=== PATIENT | female | born 1975 | race Two or more races ===

== ENCOUNTER 2023-12-17 11:02 | Inpatient (IN) | payer OTHER ==
[~2023-12-17] VITALS: Ht 165.1 cm; Wt 76.7 kg
[~2023-12-17 11:02] MED LIST: CEFADROXIL500 MG PO; CODE1TAB37 PO; DOCUSATE SODIU100 MG PO; Mylicon 125MG PO
[2023-12-17] MEDS ORDERED: LOSARTAN POTASS50 MG PO (11:32)
[2023-12-17] MEDS ORDERED: URETRON D-S TAB1 TAB (11:33)
--- NOTE | 2023-12-17 11:33 | NUR ---
PTE REFIEE REFERIDO DEL DELGADO MILIAN PARA ADMINISTRACION DE ANTIBITICO POR INFECION SEBASTIÁN DE ORINA. SE LE DEV S/V Y SE UBICA EN PASILLO.
[2023-12-17] MEDS ORDERED: 0.9 % SODIUM CHLORIDE 1,000 ML IV SCH (12:00)
[2023-12-17] MEDS ORDERED: PIPERACILLIN/TAZOBACTAM SODIUM 3.375 GM VIAL IV ONE (12:00)
[2023-12-17 12:55] LABS: HEMATOCRIT 38.2 % (36.0-45.00); MEAN CELL VOLUME 90.4 fL (80.00-100.00); MEAN CORPUSCULAR HEMOGLOBIN 30.8 pg (27.00-32.0); MEAN CORPUSCULAR HGB CONC 34.1 g/dl (32.0-36.0); PLATELET COUNT 257 K/uL (150-450); RED BLOOD COUNT 4.22 M/uL (4.00-6.00); RED CELL DISTRIBUTION WIDTH 13.3 % (11.5-14.5)
--- NOTE | 2023-12-17 13:21 | NUR ---
PTE ALERTA Y ORIENTADA X3, RN PARRA EDUCA A PTE SOBRE [place] MEDICO, REFIERE ENTENDER. SE JING MUESTRAS DE LAB ABJO MEDIDAS ASEPTICAS, SE ADMINISTRAN MEDICAMENTOS RAUL ORDEN MEDICA Y SE NOTIFICA CT PENDIENTE
[2023-12-17 13:28] LABS: CREATININE SERUM 0.7 mg/dL (0.55-1.02); GFR 88.57; POTASSIUM 4.25 mEq/L (3.5-5.1)
[2023-12-17] MEDS ORDERED: RINGERS SOLUTION,LACTATED 1,000 ML IV SCH (15:30)
[2023-12-17 15:43] VITALS: BP 135/90
[2023-12-17 15:56] VITALS: BP 135/90; O2SAT 100
[2023-12-17 16:59] LABS: URINE APPEARANCE Clear; URINE BILIRRUBIN Negative (NEGATIVE); URINE BLOOD Negative; URINE COLOR Dark Yellow; URINE GLUCOSE Negative (NEGATIVE); URINE KETONE Negative (NEGATIVE); URINE LEUKOCYTE Trace; URINE NITRATE Positive; URINE PROTEIN Negative (NEGATIVE)
[2023-12-17 17:01] LABS: URINE BACTERIA 972.6 uL (0.0-1933); URINE EPITHELIAL CELLS 14.3 uL (0.0-38.8); URINE RBC 28.2 uL (0.0-20.8); URINE WBC 29.8 uL (0.0-23.2)
[2023-12-17 17:09] LABS: URINE CAST 0.15 uL (0.0-1.40)
[2023-12-17] MEDS ORDERED: MEROPENEM 500 MG in 0.9 % SODIUM CHLORIDE 50 ML IV SCH (18:00)
[2023-12-17] MEDS ORDERED: ACETAMINOPHEN 500 MG GEL..CAP PO PRN (20:45)
[2023-12-17] MEDS ORDERED: FAMOTIDINE/PF 20 MG/2 ML VIAL IV SCH (21:00)
[2023-12-18 01:52] VITALS: BP 115/71; O2SAT 97
[2023-12-18 06:09] LABS: HEMATOCRIT 37.5 % (36.0-45.00); HEMOGLOBIN 12.9 g/dL (12.0-15.00); MEAN CELL VOLUME 91.8 fL (80.00-100.00); MEAN CORPUSCULAR HEMOGLOBIN 31.5 pg (27.00-32.0); MEAN CORPUSCULAR HGB CONC 34.3 g/dl (32.0-36.0); PLATELET COUNT 239 K/uL (150-450); RED BLOOD COUNT 4.09 M/uL (4.00-6.00); RED CELL DISTRIBUTION WIDTH 13.3 % (11.5-14.5)
[2023-12-18 06:48] LABS: ALBUMIN 3.4 gm/dL (3.4-5.0); BILIRUBIN TOTAL 0.46 mg/dL (0.3-1.2); CALCIUM 8.6 mg/dL (8.5-10.1); CREATININE SERUM 0.54 mg/dL (0.55-1.02); GFR 119.5; GLOBULINA 3.3 G/DL (2.4-3.5); MAGNESIUM 2.1 mg/dL (1.8-2.4); PHOSPHOROUS 4.1 mg/dL (2.5-4.9); POTASSIUM 4.27 mEq/L (3.5-5.1); TOTAL PROTEIN 6.7 gm/dL (6.4-8.2)
[2023-12-18 08:50] VITALS: BP 119/76
[2023-12-18] MEDS ORDERED: ENOXAPARIN SODIUM 40 MG/0.4 ML SYRINGE SUBCUTANEO SCH (09:00)
[2023-12-18] MEDS ORDERED: LOSARTAN POTASSIUM 50 MG TABLET PO SCH (09:00)
[2023-12-18 16:24] VITALS: BP 145/94
[2023-12-19 01:43] VITALS: BP 136/83; O2SAT 97
[2023-12-19 09:02] VITALS: BP 128/80; O2SAT 97
[2023-12-19 16:00] VITALS: BP 139/89; O2SAT 97
[2023-12-19] MEDS ORDERED: LACTOBACILLUS ACIDOPHILUS 1 CAP CAP PO SCH ×2 (17:00)
[2023-12-20 01:50] VITALS: BP 130/83; O2SAT 98
[2023-12-20 11:05] VITALS: BP 147/90; O2SAT 97
[2023-12-20] MEDS ORDERED: CLOTRIMAZOLE 10 MG TROCHE MM SCH (17:00)
[2023-12-20 17:28] VITALS: BP 159/90
[2023-12-21 01:38] VITALS: BP 146/85; O2SAT 99
[2023-12-21 06:37] LABS: HEMATOCRIT 36.4 % (36.0-45.00); HEMOGLOBIN 12.5 g/dL (12.0-15.00); MEAN CELL VOLUME 90.2 fL (80.00-100.00); MEAN CORPUSCULAR HEMOGLOBIN 30.9 pg (27.00-32.0); MEAN CORPUSCULAR HGB CONC 34.3 g/dl (32.0-36.0); PLATELET COUNT 255 K/uL (150-450); RED BLOOD COUNT 4.03 M/uL (4.00-6.00); RED CELL DISTRIBUTION WIDTH 13.3 % (11.5-14.5)
[2023-12-21 07:33] LABS: ALBUMIN 3.4 gm/dL (3.4-5.0); BILIRUBIN TOTAL 0.37 mg/dL (0.3-1.2); CALCIUM 8.9 mg/dL (8.5-10.1); CREATININE SERUM 0.45 mg/dL (0.55-1.02); GFR 147.48; GLOBULINA 3.3 G/DL (2.4-3.5); MAGNESIUM 2.3 mg/dL (1.8-2.4); POTASSIUM 4.48 mEq/L (3.5-5.1); TOTAL PROTEIN 6.7 gm/dL (6.4-8.2)
[2023-12-21 08:35] VITALS: BP 130/81
[2023-12-21 17:10] VITALS: BP 127/79
[2023-12-21] MEDS ORDERED: FAMOtidine 20 MG TABLET PO SCH (21:00)
[2023-12-21 23:50] VITALS: BP 138/88; O2SAT 98
[2023-12-22 08:08] VITALS: BP 127/77
[2023-12-22 18:36] VITALS: BP 151/90; O2SAT 98
[2023-12-23 01:16] VITALS: BP 131/80; O2SAT 97
[2023-12-23 09:06] VITALS: BP 120/78; O2SAT 99
[2023-12-23 18:55] VITALS: BP 159/90
[2023-12-24 01:04] VITALS: BP 126/70
[2023-12-24 09:26] VITALS: BP 140/80; O2SAT 99
[2023-12-24] MEDS ORDERED: COZAAR50 MG PO (12:22)
[2023-12-24] MEDS ORDERED: CORTISONE60 GM TOP (12:23)
== END 2023-12-24 13:37 | disposition home or self-care (01) | DRG 690 ==
LOC: ER 11:04 → MEDJ 15:19 → SEC-K 15:19 → MEDJ 15:52
PROVIDERS: Emergency Medicine; Internal Medicine; ADMIT Internal Medicine; ATTEND Internal Medicine
PROC: BW21ZZZ Computerized Tomography (CT Scan) of Abdomen and Pelvis (ICD-10-PCS; principal; 2023-12-17)
DX: N39.0 Urinary tract infection, site not specified (principal); Z16.12 Extended spectrum beta lactamase (ESBL) resistance; R10.2 Pelvic and perineal pain; I10 Essential (primary) hypertension; B96.20 Unspecified Escherichia coli [E. coli] as the cause of diseases classified elsewhere; R21 Rash and other nonspecific skin eruption